=== PATIENT | male | born 1990 ===

== ENCOUNTER 2022-02-27 08:44 | Emergency (ER) | payer SELFPAY ==
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
[2022-02-27 10:14] LABS: Basophils % (Auto) 0.3 % (0.0-1.8); Eosinophils # (Auto) 0.1 K/mm3 (0.0-0.4); Eosinophils % (Auto) 0.7 % (0.0-4.3); Hematocrit 43.3 % (35.5-45.6); Hemoglobin 14.3 gm/dl (11.8-15.2); Lymphocytes # (Auto) 1.3 K/mm3 (1.2-5.4); Lymphocytes % (Auto) 11.4 % (13.4-35.0); Mean Corpuscular HGB Conc 32 % (32-34); Mean Corpuscular Volume 96 fl (84-94); Monocytes # (Auto) 0.6 K/mm3 (0.0-0.8); Platelet Count 235 K/mm3 (140-440); Red Cell Distribution Width 14.3 % (13.2-15.2)
[2022-02-27] MEDS ORDERED: ONDANSETRON 4 MG/2 ML INJ ONE (10:35)
[2022-02-27] MEDS ORDERED: SODIUM CHLORIDE 0.9% 1000 ML 1,000 ML ONE ×2 (10:35→12:34)
[2022-02-27 10:54] LABS: Mucus,Urine 3+ /HPF
[2022-02-27 11:08] LABS: Alanine Aminotransferase 13 units/L (7-56); Albumin 4.5 g/dL (3.9-5); BUN/Creatinine Ratio 13; Bilirubin,Direct 0.2 mg/dL (0-0.2); Blood Urea Nitrogen 12 mg/dL (9-20); Calcium 9.7 mg/dL (8.4-10.2); Hemolysis Index 6
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
[2022-02-27 11:17] LABS: Color,Urine Yellow (Yellow)
[2022-02-27 11:20] LABS: Amphetamine Screen,Urine Negative; Benzodiazepines Screen,Urine Negative; Cocaine Screen,Urine Negative; Methadone Screen,Urine Negative; Opiate Screen,Urine Negative
[2022-02-27 11:38] LABS: Cannabinoid Screen,Urine Positive
[2022-02-27] MEDS ORDERED: SODIUM CHLORIDE 0.9% 1000 ML 1,000 ML IV ONE ×2 (12:00→13:25)
[2022-02-27] MEDS ORDERED: ONDANSETRON 4 MG/2 ML INJ IV ONE (13:25)
[2022-02-27 15:15] VITALS: BP 133/68
--- NOTE | 2022-02-28 10:18 | Electrocardiograph Report ---
[facility] Test Date: 2022-02-27 Test Time: 09:43:25 Pat Name: JOHN GRIFFIN Department: Room: Gender: M [employer] Machine: [birth year] : 1990 Requested By: MICHELLE HANNAH Order Number: [id number] Reading MD: Joel Higgins Measurements Intervals [place] Rate: 62 P: 55 WA: 165 QRS: 48 QRSD: 89 T: 49 QT: 390 QTc: 396 Interpretive Statements Sinus rhythm Probable left atrial enlargement ST elev, probable normal early repol pattern No previous ECG available for comparison Electronically Signed On 02-28-2022 10:17:59 EDT by Joel Higgins
== END 2022-02-27 15:15 | disposition home or self-care (01) ==
LOC: ED 08:44
DX: R45.1 Restlessness and agitation (principal); F12.90 Cannabis use, unspecified, uncomplicated; Z87.442 Personal history of urinary calculi; Z79.899 Other long term (current) drug therapy
CPT/HCPCS: 36415; 80048; 80076; 80307; 81001; 82550; 84484; 85025; 93005; 96361; 96374; 99283; J2405; J7030